=== PATIENT | male | born 1980 | race Caucasian/White ===

== ENCOUNTER 2017-11-21 10:19 | Inpatient (IN) | payer OTHER ==
[~2017-11-21] VITALS: Ht 185.4 cm; Wt 82.0 kg
[2017-11-21] MEDS ORDERED: ONDANSETRON INJ 2 MG/ML 2 ML VIAL IV PRN (16:30)
[2017-11-21 17:13] VITALS: BP 145/88; PULSE 69; TEMP 37; BMI 23.9
[2017-11-21] MEDS ORDERED: PATIENT'S ALLERGY INFO NEEDS ENTERED SCH (17:30)
[2017-11-21] MEDS: PATIENT'S HEIGHT AND/OR WEIGHT NEEDED SCH ×2 (17:30→18:37)
[2017-11-21 17:51] LABS: BASO % 0.6 %; BASO ABS # 0.05 K/uL (0-0.2); EOS % 4.9 %; EOS ABS # 0.41 K/uL (0-0.5); HEMATOCRIT 41.5 % (42-52); HEMOGLOBIN 14.1 g/dL (14.0-18.0); IG# 0.02 K/uL (0.00-0.02); LYMPH % 27.1 %; LYMPH ABS # 2.27 K/uL (1.2-3.4); MEAN CELL VOLUME 92.4 fL (80-100); MEAN CORPUSCULAR HEMOGLOBIN 31.4 pg (25-34); MEAN PLATELET VOLUME 9.6 fL (7.4-10.4); MONO % 12.1 %; MONO ABS # 1.01 K/uL (0.11-0.59); NEUT % 55.1 %; NEUT ABS # 4.62 K/uL (1.4-6.5); PLATELET COUNT 235 K/uL (130-400); RED CELL DISTRIBUTION WIDTH CV 12.6 % (11.5-14.5); RED CELL DISTRIBUTION WIDTH SD 42.4 fL (36.4-46.3); WHITE BLOOD COUNT 8.38 K/uL (4.8-10.8)
--- NOTE | 2017-11-21 18:02 | History and Physical ---
History & Physical Date & Time of Service: Nov 21, 2017 at 17:51 Chief Complaint: Pneumothorax(Left) Primary Care Physician: Connor Estrella PA-C History of Present Illness Source: patient 37 year old male was admitted to [facility] 3 days ago due to left pneumothorax. He notes that 3 days ago he had an "odd" pain-like sensation that radiated from his left shoulder across his left chest wall. He had some associated SOB and noted his symptoms were worse with deep inspiration and cough. He was seen at [facility] where he had a left chest tube placed. He notes it is difficult to ascertain if his presenting symptoms have improved because the chest tube is causing discomfort. Dr. Mathew has subsequently been asked to see him for definitive care. The pt. does note that he had had a left lung collapse 4 times in the past, each time being treated in a conservative manner. He notes he has never had chest surgery for this problem, and in fact has never had a chest tube prior to this admission. At the time of arrival to [facility] the pt. was noted to be in no distress and only complained of pain on left side from chest tube. Past Medical/Surgical History PMHx: 1. Left spontaneous pneumothorax x 4 2. GERD 3. Depression 4. Anxiety 5. Tobacco Use 6. Hx. of ETOH abuse PSHx: 1. Left chest ube placement 2. Tonsillectomy Family History -pt. denies any FH of siblings with pneumothorax -no known FH of cancer Social History Smoking Status: Former Smoker (he has smoked about 1ppd and quit 3 days ago) Smokeless Tobacco Use: No Alcohol Use: former hx. of "heavy ETOH use", but no drinks in 4 years Drug Use: none Marital Status: single Allergies Coded Allergies: Cefaclor (Verified Allergy, Severe, Hives , 11/21/17) Quetiapine (Verified Adverse Reaction, Intermediate, DELIRIUM, 11/21/17) Lethargic Review of Systems Constitutional: No fever, No chills, No weight loss Eyes: No eye pain ENT: No hearing loss Respiratory: + shortness of breath, No cough, No hemoptysis Cardiovascular: + chest pain (chest wall pain ), No palpitations Abdomen: + constipation, No pain, No nausea, No vomiting, No diarrhea Musculoskeletal: No joint pain Genitourinary - Male: No dysuria Neurologic: No weakness Psychiatric: + depression symptoms, + anxiety Endocrine: No fatigue Hematologic / Lymphatic: No clotting problems Integumentary: + problem reported (skin blisters under chest tube dressing ) Allergic / Immunologic: No seasonal allergies Physical Exam General Appearance: WD/WN, no apparent distress Head: normocephalic, atraumatic Eyes: normal inspection, PERRL, EOMI ENT: hearing grossly normal Neck: supple, no adenopathy, no JVD, trachea midline Respiratory/Chest: lungs clear, normal breath sounds, no respiratory distress, no accessory muscle use, + pertinent finding (decreased inspiratory effort due to pain from chest tube ) Cardiovascular: regular rate, rhythm Abdomen/GI: non tender, soft Extremities/Musculoskelatal: no calf tenderness, no pedal edema Neurologic/Psych: can handler II-XII nml as tested, alert, oriented x 3 Skin: + pertinent finding (skin blisters noted under tabe at current chest tube dressing ) no crepitus noted in soft tissue of chest, back, or neck skin blisters noted under tape of current dressing chest tube examined on water seal--no air leak noted Diagnostics Laboratory Results Results Past 24 Hours Test 11/21/17 17:32 Range/Units Diagnostic Radiology CT scan of chest performed at [facility] shortly after arrival (11/21/17): -bilateral apical blebs noted -left chest tube is in place with only small residual let pneumothorax noted Impression Assessment and Plan 37 year old male with recurrent left pneumothorax -will continue chest tube alternating suction and water seal every 4 hours -maintain on supplemental oxygen while in bed -pain control measures: -tylenol, toradol, oxycodone, morphine -encourage coughing, deep breathing, use of IS, and ambulation -due to recurrent nature of problem and noted blebs in lung apices will tentatively plan for left VATS & bleb stapling tomorrow: -the procedure, risks, benefits and alternatives were discussed with the patient and his significant other, along with the expected post-op course/ recovery -will check baseline labs due to planned surgery -NPO after midnight tonight except meds TOBACCO USE -pt. notes he has quit upon recent admission DEPRESSION/ANXIETY -maintain on home dose of Effexor as well as prn Ativan GERD -maintain on ranitidine OTHER -will use SCDs while in bed and ambulation for DVT prevention: -will implement chemical means of DVT prevention post-op but hold for now due to planned surgery -d/c home post-op once chest tube able to be removed Level of Care Med/Surg Resuscitation Status FULL RESUSCITATION VTE Prophylaxis Risk Level: Moderate Given or contraindicated: SCD's
--- NOTE | 2017-11-21 18:02 | DIAGNOSTIC IMAGING REPORT ---
CT SCAN OF THE CHEST WITHOUT IV CONTRAST CLINICAL HISTORY: Pneumothorax. Chest tube placement. COMPARISON STUDY: No priors. TECHNIQUE: CT scan of the thorax was performed from the thoracic inlet to the upper abdomen. Images are reviewed in the axial, sagittal, and coronal planes. IV contrast was not administered for this examination as per the referring clinician. A dose lowering technique was utilized adhering to the principles of ALARA. The examination is degraded by streak artifact from the left arm which could not be elevated above the chest. CT DOSE: 469.70 mGycm FINDINGS: Thyroid: Imaged portions of the thyroid gland are normal in size and attenuation. Thoracic aorta: The thoracic aorta is normal in caliber and demonstrates standard 3-vessel arch anatomy. Heart: The heart is normal in size and without pericardial effusion. Lungs and pleural spaces: A chest tube enters the left pleural space laterally between the fourth and fifth ribs. The tip terminates in the lateral left upper pleural space. There is trace residual pneumothorax identified at the left apex and the anterior left lung base. Trace pleural effusions are identified. There is elevation of the right hemidiaphragm and bibasilar dependent atelectasis. A calcified granuloma is noted at the left lung base. Numerous tiny blebs are present at both apices. There is no right-sided pneumothorax. No airspace consolidation is seen typical for pneumonia. Mediastinum: There is no mediastinal lymphadenopathy. Melanie: Not well assessed without IV contrast. Axillae: There is no axillary lymphadenopathy. Upper abdomen: Partially visualized upper abdominal viscera is within normal limits. Skeletal structures: No lytic or blastic bony lesions are seen. IMPRESSION: 1. A left-sided chest tube has been placed as above. There is trace residual left-sided pneumothorax. 2. There are trace pleural effusions, elevation of the right hemidiaphragm, and bibasilar atelectasis. 3. Numerous tiny blebs are present at the lung apices. 4. There is no airspace consolidation typical for pneumonia. Electronically signed by: Ramu Ford M.D. 11/21/2017 6:01 PM Dictated Date/Time: 11/21/2017 5:55 PM
[2017-11-21 18:05] LABS: PTT PATIENT 28.2 SECONDS (21.0-31.0)
[2017-11-21 18:14] LABS: BLOOD UREA NITROGEN 7 mg/dl (7-18); CARBON DIOXIDE 27 mmol/L (21-32); CREATININE 1.06 mg/dl (0.60-1.40); GLUCOSE 95 mg/dl (70-99); POTASSIUM 3.7 mmol/L (3.5-5.1); SODIUM 138 mmol/L (136-145)
[2017-11-21] MEDS: ACETAMINOPHEN 325 MG TAB PO SCH ×2 (18:30→23:13)
[2017-11-21 18:36] VITALS: Ht 185.4 cm; Wt 82.0 kg
[2017-11-21] MEDS: MoRPHine SULFATE 2 MG/ML CARP IV PRN ×2 (18:49→22:01)
[2017-11-21] MEDS: LORAZEPAM 0.5 MG TAB PO PRN (18:49)
[2017-11-21] MEDS: OXYCODONE HCL IR 5 MG TAB (IMMEDIATE RELEASE) PO PRN (20:07)
[2017-11-21] MEDS: DOCUSATE SODIUM 100 MG CAP PO SCH (21:54)
[2017-11-21] MEDS: RANITIDINE HCL 150 MG TAB PO SCH (21:55)
[2017-11-21 23:05] VITALS: BP 171/98; PULSE 69; TEMP 36.8; O2SAT 95
[2017-11-22] VITALS (11 sets, daily range): BP systolic 109–143; BP diastolic 56–85; PULSE 46–76; TEMP 36.3–36.9; O2SAT 93–97
[2017-11-22] MEDS: MoRPHine SULFATE 2 MG/ML CARP IV PRN ×3 (02:13→06:03)
[2017-11-22] MEDS: ACETAMINOPHEN 325 MG TAB PO SCH ×2 (06:06→09:24)
[2017-11-22] MEDS: KETOROLAC TROMETHAMINE 15 MG/ML VIAL IV PRN (06:27)
--- NOTE | 2017-11-22 07:16 | History & Physical Bridge Note ---
H&P Re-Evaluation Bridge Note: I have examined the patient, reviewed the History & Physical and in the interval since the performance of the History & Physical I have noted the following changes of clinical significance: No changes noted
--- NOTE | 2017-11-22 07:51 | PULMONARY CONSULTATION ---
DATE OF ADMISSION: 11/21/2017 HISTORY OF PRESENT ILLNESS: Mario Choi is a 37-year-old male with a history of cigarette smoking for 20 years and had at least a pack a day, who feels he had a left-sided pneumothorax when he was 19. At that time, he was 160 pounds. He has since filled out and now weighs 180 pounds; however, he noted the onset of left shoulder pain and tightness in his left chest 3 days ago with some shortness of breath. This was pleuritic in nature. He was referred to [facility] from the urgent care and a chest tube was inserted. He has been in considerable amount of pain with this. His past medical history significant for depression, anxiety as well as lumbosacral disc disease and a possible cervical disc disease. I was called by the general surgeon at [facility] and the patient was referred up to our service. He arrived last night and was admitted. Today, his chest tube is in place. He is complaining of considerable amount of pain and is unable to lay in bed. He does not have an air leak. I reviewed a CT scan done last night. He does have a few bullae, small blebs in his left apex. I had a long talk with the patient and his significant other. We are going to proceed with an apical bleb resection later today. I answered all questions. We discussed chest tubes and expected postop management. We will plan to do this procedure with a left thoracoscopy with apical bleb resection later today.
[2017-11-22] MEDS: RANITIDINE HCL 150 MG TAB PO SCH ×2 (09:23→21:26)
[2017-11-22] MEDS: DOCUSATE SODIUM 100 MG CAP PO SCH ×2 (09:23→21:26)
[2017-11-22] MEDS: LORATADINE 10 MG TAB PO SCH (09:23)
[2017-11-22] MEDS: VENLAFAXINE HCL XR 37.5 MG CAPXR PO SCH (09:24)
[2017-11-22] MEDS ORDERED: FENTANYL CITRATE INJ 50 MCG/1 ML 2 ML VIAL ONE (10:30)
[2017-11-22] MEDS ORDERED: MIDAZOLAM HCL 1 MG/ML 2ML VIAL ONE (10:30)
[2017-11-22] MEDS ORDERED: BUPIVACAINE 0.5 % 5 MG/1 ML MPF 30ML VIAL ONE (10:50)
[2017-11-22] MEDS ORDERED: SODIUM CHLORIDE 0.9% PF 50 ML VIAL ONE ×2 (10:50)
[2017-11-22] MEDS ORDERED: BUPIVACAINE LIPOSOME 1/3% 266 MG/20 ML VIAL INFIL ONE (10:50)
[2017-11-22] MEDS ORDERED: CEFAZOLIN SOD 2000MG/15 ML IV PUSH IV ONE (11:05)
[2017-11-22] MEDS ORDERED: FENTANYL CITRATE INJ 50 MCG/1 ML 2 ML VIAL IV PRN (11:15)
[2017-11-22] MEDS ORDERED: HYDROmorphone INJ 0.5 MG/0.5 ML SYR IV PRN (11:15)
[2017-11-22] MEDS ORDERED: PROMETHAZINE HCL INJ 6.25 MG in SODIUM CHLORIDE 0.9% 50ML 50 ML IV PRN (11:15)
[2017-11-22] MEDS ORDERED: ATROPINE SULFATE 0.1 MG/ML 5ML SYR IV PRN (11:15)
[2017-11-22] MEDS ORDERED: EpHEDrine SULFATE INJ 50 MG/ML AMP IV PRN (11:15)
[2017-11-22] MEDS ORDERED: ONDANSETRON INJ 2 MG/ML 2 ML VIAL IV PRN (11:15)
[2017-11-22] MEDS ORDERED: CLINDAMYCIN PHOS 150 MG/ML 2 ML VIAL ONE ×2 (11:39→11:40)
[2017-11-22] MEDS ORDERED: GENTAMICIN SULFATE 40 MG/ML 2 ML VIAL ONE (11:46)
[2017-11-22] MEDS ORDERED: VANCOMYCIN HCL 1000MG/20ML VIAL ONE (11:46)
[2017-11-22] MEDS ORDERED: LIDOCAINE HCL 2% 2 ML VIAL (20MG/ML) ONE (11:51)
[2017-11-22] MEDS ORDERED: DEXAMETHASONE SOD INJ 4 MG/ML VIAL ONE (11:51)
[2017-11-22] MEDS ORDERED: GLYCOPYRROLATE INJ 0.2 MG/ML VIAL ONE (11:51)
[2017-11-22] MEDS ORDERED: NEOSTIGMINE METHYLSULFATE 5 MG/5 ML SYR ONE (11:51)
[2017-11-22] MEDS ORDERED: ROCURONIUM BROMIDE 10 MG/ML 5 ML VIAL IV ONE (11:51)
[2017-11-22] MEDS ORDERED: ONDANSETRON INJ 2 MG/ML 2 ML VIAL ONE (11:51)
[2017-11-22] MEDS ORDERED: PROPOFOL IV EMULSION 10 MG/ML 20 ML VIAL IV ONE (11:51)
--- NOTE | 2017-11-22 12:26 | [facility] Post Operative Brief Note ---
Immediate Operative Summary Operative Date Nov 22, 2017. Pre-Operative Diagnosis Left pneumothorax Post-Operative Diagnosis Same Procedure(s) Performed Video Assisted Thoracoscopy with Bleb Stapling insertion of Stimulan Beads Surgeon Dr Mathew Major Sales Associate Surgeon(s) Kumar Arceo PA-C Estimated Blood Loss 5ml Findings Consistent with Post-Op Diagnosis Specimens Culture #1 left upper lobe for gram stain, aerobic, anaerobic fungal and AFB A. Left parietal pleura B. Left upper lobe apex C. Left pleural implant Drains None (one 20fr chest tube) Anesthesia Type General
--- NOTE | 2017-11-22 13:19 | DIAGNOSTIC IMAGING REPORT ---
CHEST ONE VIEW PORTABLE CLINICAL HISTORY: 37 years-old Male presenting with bleb resection . TECHNIQUE: Portable upright AP view of the chest was obtained. COMPARISON: Chest CT from the previous day. FINDINGS: Cardiomediastinal silhouette normal. Blunting of the right costophrenic angle, possibly small pleural effusion. Bandlike opacities at the lung bases. Postsurgical changes of the left apex with a suture margin noted. A large bore left pleural drain is positioned at the left apex. No pneumothorax. Osseous structures normal. Upper abdomen normal. IMPRESSION: 1. Bibasilar atelectasis and possible small right pleural effusion. No pneumothorax with the large bore left pleural drain in place. Electronically signed by: Frank Camacho M.D. 11/22/2017 1:18 PM Dictated Date/Time: 11/22/2017 1:11 PM
--- NOTE | 2017-11-22 13:35 | Anesthesiology Progress Note ---
Anesthesia Post Op Note Date & Time Nov 22, 2017 at 13:35 Vital Signs Pain Intensity: 2 Vital Signs Past 12 Hours Date Time Temp Pulse Resp B/P (MAP) Pulse Ox O2 Delivery O2 Flow Rate FiO2 11/22/17 13:20 36.2 60 16 134/80 98 Nasal Cannula 2 11/22/17 13:10 61 16 134/76 98 Nasal Cannula 2 11/22/17 12:43 36.2 65 16 129/80 97 Oxymask 10 11/22/17 07:25 Nasal Cannula 2.0 Notes Mental Status: alert / awake / arousable, participated in evaluation Pt Amnestic to Procedure: Yes Nausea / Vomiting: adequately controlled Pain: adequately controlled Airway Patency, RR, SpO2: stable & adequate BP & HR: stable & adequate Hydration State: stable & adequate Anesthetic Complications: no major complications apparent
[2017-11-22] MEDS: METOCLOPRAMIDE HCL INJ 5 MG/ML 2 ML VIAL IV. SCH ×2 (14:16→21:27)
--- NOTE | 2017-11-22 14:21 | OPERATIVE REPORT ---
DATE OF OPERATION: 11/22/2017 PREOPERATIVE DIAGNOSIS: Recurrent left spontaneous pneumothorax. POSTOPERATIVE DIAGNOSIS: Same. PROCEDURES: 1. Left thoracoscopy with apical bleb resection. 2. Limited apical pleurectomy. SURGEON: Nicolas Mathew MD BROOD STATION MANAGER: ROSA Sheth (MrRoss Adis was present for the entire case and was instrumental in holding the camera and closed the skin incisions at the conclusion). ANESTHESIA: General anesthesia endotracheal intubation. INDICATION FOR PROCEDURE AND FINDINGS: This is a 37-year-old male with well over [id number] smoking history, who noted signs and symptoms consistent with a spontaneous left pneumothorax at 19. This has happened at least 3 other times and the latest was a few days ago when he presented with left-sided chest pain which was identical the pain he had in the past. He was found to have a sizable pneumothorax and a chest tube was inserted in the Emergency Room down at [facility]. I was called by the general surgeon and transferred him up last night. Today, we brought him down to the operating room. A CT scan was obtained and really he had very little in the way of blebs, although there were numerous, they were very small. They did not appear to be typical apical blebs we see in young adults. At any rate, I felt that apical bleb resection and limited pleurectomy should be offered. It should also be noted the patient was in a considerable amount of pain with his chest tube. On 11/22/2017, the patient brought to the operating room and underwent an uncomplicated left thoracoscopy with a wedge resection. He did have some small blebs. We did a limited pleurectomy. I performed an Exparel block in the 2nd-11th rib. We also implanted calcium sulfate beads into his chest tube site from his chest tube which had been placed a few days ago in the Emergency Room. Rather than leave it open and loosely pack it, I felt that closing with the calcium sulfate beads would prevent infection and also allow us to close this wound. He tolerated it well and was extubated in the room with negligible blood loss. DESCRIPTION OF PROCEDURE: The patient brought to the operating room and laid in supine position. General anesthesia induced and endotracheal intubation was performed with a single lumen tube. The patient was placed in the right lateral decubitus position. Left chest prepped and draped in usual sterile fashion after chest tube had been removed. We kept his volumes quite low. It was prepped and draped in usual sterile fashion. I went in through his original incision with a 12 mm port and insufflated CO2. With the 5 mm scope, it could be seen that the patient had no adhesions and well-formed lobes with fissures. I closely inspected and did have some small apical blebs. I really did not see any blebs anywhere else. At this point, we mixed 266 mg of Exparel with 150 mL of normal saline, and 30 mL of 0.5% bupivacaine. We then used this with a long needle to block the 2nd-11th rib. I also used it for each of the 3 incisions which had been made. A 5 mm port was placed below the tip of the scapula and another 5 mm port was placed about the eighth interspace a bit more lateral at the costal margin. With these two 5 mm ports and 12 mm port, we were able to grasp the apex and then fired an Endo-SOCRATES stapler and removed a sizable portion of the upper lobe apex. I then closely inspected the superior segment of the lower lobe as well as the intralobar fissures. I really did not see a bleb. We did not see evidence of an air leak. The pleura was scored at about the fifth interspace and bluntly and sharply taken off throughout the entire upper apex. He began minimal blood loss with this. A 20-Turkmen chest tube was placed through the anterior inferior incision and directed towards the apex and held in place with heavy silk suture. The posterior port at the tip of the scapula was closed with 4-0 Monocryl in running subcuticular fashion. The 2.5-3 cm incision in the anterolateral upper chest was then irrigated and the muscle layers were closed with 0 Vicryl in a running continuous fashion. We then mixed 5 mL of purified calcium sulfate with 240 mg of gentamicin and 500 mg of vancomycin. When this had formed a paste, we placed it on a mold. When the beads had set, the mold was bent the beads removed. The beads were then used to pack this wound and a 4-0 Monocryl was used in running suture fashion to close the wound. He tolerated it well. He did have skin lai with blisters and we covered these with antibiotic dressings and paper tape to prevent any further blisters. He did not have an air leak at the conclusion of the case. His chest x-ray showed full expansion of his lung. His pain was much improved. I attest to the content of the Intraoperative Record and any orders documented therein. Any exceptions are noted below. MTDD
[2017-11-22] MEDS: D5W AND 1/2NSS 1,000 ML IV SCH ×2 (16:12→23:47)
[2017-11-22] MEDS: ACETAMINOPHEN IV 1,000 MG in EMPTY BAG 0 ML IV SCH ×2 (16:12→23:47)
[2017-11-22] MEDS: LORAZEPAM 0.5 MG TAB PO PRN (17:50)
[2017-11-23] VITALS (7 sets, daily range): BP systolic 111–132; BP diastolic 62–77; PULSE 40–65; TEMP 36.2–36.8; O2SAT 95–97
[2017-11-23] MEDS: METOCLOPRAMIDE HCL INJ 5 MG/ML 2 ML VIAL IV. SCH (05:44)
[2017-11-23] MEDS: OXYCODONE HCL IR 5 MG TAB (IMMEDIATE RELEASE) PO PRN ×2 (05:44→13:26)
[2017-11-23] MEDS ORDERED: ENOXAPARIN 40 MG/0.4 ML SYR SQ SCH (06:00)
[2017-11-23] MEDS ORDERED: VENL37.593 PO (06:16)
[2017-11-23] MEDS ORDERED: CLR10 PO (06:16)
[2017-11-23] MEDS ORDERED: ZNT150 PO (06:16)
[2017-11-23] MEDS ORDERED: CLC100 PO (06:16)
--- NOTE | 2017-11-23 06:18 | Discharge Instructions ---
Discharge Instructions Date of Service Nov 23, 2017. Admission Reason for Admission: Pneumothorax(Left) Discharge Discharge Diagnosis / Problem: Spontaneous Pneumothorax Discharge Goals Goal(s): Decrease discomfort, Improve function Activity Recommendations Activity Limitations: as noted below Lifting Limitations: none 1. Do not drive until cleared to do so by Dr. Mathew. . Instructions / Follow-Up Instructions / Follow-Up 1. You may remove dressings in 3 days and shower thereafter. No tub baths. 2. Office appointment with Dr. Mathew in 1 week. Office will call you with date and time of appointment. Go to hospital 1 hour before appointment to have a chest x-ray taken. Current Hospital Diet Patient's current hospital diet: Regular Diet Discharge Diet Recommended Diet: Regular Diet Procedures Procedures Performed: Video Assisted Thoracoscopy with Bleb Stapling insertion of Stimulan Beads Pending Studies Studies pending at discharge: no Medical Emergencies . Who to Call and When: Medical Emergencies: If at any time you feel your situation is an emergency, please call 911 immediately. . Non-Emergent Contact Non-Emergency issues call your: Surgeon Call Non-Emergent contact if: you have a fever, your pain is not controlled, wound has increased drainage . "Provider Documentation" section prepared by Mor Arceo. .
[2017-11-23] MEDS: ACETAMINOPHEN 325 MG TAB PO SCH ×2 (06:36→11:24)
--- NOTE | 2017-11-23 07:17 | DIAGNOSTIC IMAGING REPORT ---
SINGLE VIEW CHEST CLINICAL HISTORY: Pneumothorax and chest tube. Bleb resection. FINDINGS: An AP, portable, upright chest radiograph is compared to study dated 11/22/2017 and correlated with chest CT dated 11/21/2017. The cardiomediastinal silhouette is unremarkable. A left sided chest tube is unchanged in position. There is likely a trace residual left apical pneumothorax. There is now a small right apical pneumothorax with approximately 2 cm of pleural separation There is elevation right hemidiaphragm with right basilar atelectasis. No airspace consolidation or large pleural effusion is identified. The bony thorax is grossly intact. IMPRESSION: 1. A left-sided chest tube is unchanged in position. A trace left apical pneumothorax likely persists. 2. There is now a small right apical pneumothorax. 3. No airspace consolidation or large pleural effusion is identified. Electronically signed by: Ramu Ford M.D. 11/23/2017 7:16 AM Dictated Date/Time: 11/23/2017 7:14 AM
[2017-11-23] MEDS: DOCUSATE SODIUM 100 MG CAP PO SCH (08:24)
[2017-11-23] MEDS: LORAZEPAM 0.5 MG TAB PO PRN (08:24)
[2017-11-23] MEDS: LORATADINE 10 MG TAB PO SCH (08:24)
[2017-11-23] MEDS: RANITIDINE HCL 150 MG TAB PO SCH (08:24)
[2017-11-23] MEDS: VENLAFAXINE HCL XR 37.5 MG CAPXR PO SCH (08:24)
--- NOTE | 2017-11-23 09:55 | SURGERY PROGRESS NOTE ---
DATE: 11/23/2017 Mr. Choi was seen today 11/23/2017, one day after he had a left thoracoscopy with an apical bleb resection and limited pleurectomy. He did very well with this. His pain is better even though he is complaining of pain. He had an intense pain upon his presentation. There is no air leak and no pneumothorax on the left. I removed his tube today. His incisions are clean. I was surprised to see the patient had a pneumothorax on the RIGHT. It is a small pneumothorax; however, we did not do anything on the right and I am a bit puzzled as to why he has one now. At any rate, it is small and limited to the very apex. I am going to check a chest x-ray in a few hours and if it is stable I am going to let him go home. Should it enlarge, we will consider placing a tube or perhaps consider surgery, although I would not enthusiastic about doing this such a short time after his surgery on the left. In addition, I had a long talk with the patient and his significant other at the bedside. Quite frankly, the bullae were not very well seen. We did remove the apex and do a pleurectomy and I think this should help him as we saw no air leak at the time of surgery. Having said that, he had small bulla noted with multiple small bullae in the apex. He has also had intraparenchymal air spaces. I am going to discuss this with pathology and I am curious to see what they find on histologic evaluation.
[2017-11-23] MEDS: KETOROLAC TROMETHAMINE 15 MG/ML VIAL IV PRN (11:23)
[2017-11-23] MEDS ORDERED: ACET-1047 PO (12:06)
--- NOTE | 2017-11-23 12:07 | DIAGNOSTIC IMAGING REPORT ---
SINGLE VIEW CHEST CLINICAL HISTORY: Pneumothorax. FINDINGS: An AP, portable, upright chest radiograph is compared to study performed earlier the same day for [address] dated 11/21/2017. The cardiomediastinal silhouette is unremarkable. The left-sided chest tube has been removed. Seizure material is noted the left apex. There is a small left apical pneumothorax. A small right apical pneumothorax persists. There is elevation right hemidiaphragm with right basilar atelectasis. No airspace consolidation or large pleural effusion is identified. The bony thorax is grossly intact. IMPRESSION: 1. The left-sided chest tube has been removed. There is a small left apical pneumothorax. 2. A right apical pneumothorax is unchanged. 3. No airspace consolidation or large pleural effusion is identified. Electronically signed by: Ramu Ford M.D. 11/23/2017 12:06 PM Dictated Date/Time: 11/23/2017 12:04 PM
--- NOTE | 2017-11-23 12:35 | DISCHARGE SUMMARY ---
DISCHARGE DIAGNOSES: 1. Bilateral pulmonary pneumothoraces. 2. History of active cigarette smoking. 3. History of recurrent left spontaneous pneumothoraces. HOSPITAL COURSE: Mr. Choi is a 37-year-old who has been smoking at least a pack a day for 20 years, who has noted signs and symptoms consistent with a left pneumothorax at least 3 times in the past. Presented with a 3-day history of increasing pain in his left chest, shortness of breath, and was found to have a significant left pneumothorax. Chest tube was placed in the Emergency Room at [facility] and he was admitted. He had a persistent air leak. I was called and transferred him up to my service in the evening of 11/21/2017. On 11/22/2017, I treated the patient in the operating room and did an uncomplicated thoracoscopy with a partial pleurectomy apically and wedged out the apical segment where there were multiple tiny bullae. He did well with this with no air leak and the following morning he had very little drainage and I removed his chest tube. I was surprised to see he had a right-sided pneumothorax this morning which was not present last night after surgery. It was small and I watched him for several hours on room air. He was ambulating in the hallway and tolerating a regular diet. His pain was much better after the tube had been pulled. Chest x-ray showed a very small right apical pneumothorax. In fact, I thought it was a bit smaller this morning. I felt comfortable sending him home. I, however, instructed him to call me should he run into any problems. He looked quite good and was quite pleased upon his discharge. I have explained to him that he has small bulla on the right too; however, I did not want to put a tube in for this very small apical pneumothorax or offer him an operation at this point. I will see him back next week. He is to call me if there are any issues.
--- NOTE | 2017-11-23 14:28 | Anesthesiology Progress Note ---
Anesthesia Post Op Note Date & Time Nov 23, 2017 at 13:55 Vital Signs Vital Signs Past 12 Hours Date Time Temp Pulse Resp B/P (MAP) Pulse Ox O2 Delivery O2 Flow Rate FiO2 11/23/17 12:34 36.2 65 16 95 Nasal Cannula 11/23/17 11:12 36.2 65 16 130/69 (89) 95 Room Air 11/23/17 08:30 36.6 53 16 121/72 (88) 95 Room Air 11/23/17 07:15 Room Air 11/23/17 05:45 36.8 54 16 132/77 (95) 95 Room Air Notes Mental Status: alert / awake / arousable, participated in evaluation Pt Amnestic to Procedure: Yes Nausea / Vomiting: adequately controlled Pain: adequately controlled Airway Patency, RR, SpO2: stable & adequate BP & HR: stable & adequate Hydration State: stable & adequate Anesthetic Complications: no major complications apparent
== END 2017-11-23 13:43 | disposition home or self-care (01) | DRG 165 ==
LOC: C.MSW 16:29 → UNDOADMIN 17:13
PROVIDERS: ADMIT Surgery; ATTEND Surgery
PROC: 0BBP4ZZ Excision of Left Pleura, Percutaneous Endoscopic Approach (ICD-10-PCS; principal; 2017-11-22 13:00)
PROC: 0BBL4ZZ Excision of Left Lung, Percutaneous Endoscopic Approach (ICD-10-PCS; principal; 2017-11-22 13:00)
DX: J93.83 Other pneumothorax (principal); K21.9 Gastro-esophageal reflux disease without esophagitis; F41.9 Anxiety disorder, unspecified; Z87.891 Personal history of nicotine dependence

== ENCOUNTER → 2017-11-27 | Outpatient (CLI) | payer OTHER ==
[~2017-11-27] MED LIST: ACET-1047 PO; CLC100 PO; CLR10 PO; VENL37.593 PO; ZNT150 PO
--- NOTE | 2017-11-27 09:07 | DIAGNOSTIC IMAGING REPORT ---
CHEST 2 VIEWS ROUTINE CLINICAL HISTORY: J93.9 pneumothorax COMPARISON STUDY: 11/23/2017 FINDINGS: The right lung is currently clear. No evidence for right-sided pneumothorax. Persistent very small left apical pneumothorax with a maximum pleural separation of 6 mm. This is slightly improved the prior exam. Unchanging calcified granuloma left midlung. Lung bases are clear. IMPRESSION: Improved exam. No significant right-sided pneumothorax. Minimal residual left apical pneumothorax. The above report was generated using voice recognition software. It may contain grammatical, syntax or spelling errors. Electronically signed by: Alin Linares M.D. 11/27/2017 9:05 AM Dictated Date/Time: 11/27/2017 9:04 AM
== END | disposition home or self-care (01) ==
LOC: C.RAD1850 08:52
PROVIDERS: ATTEND Surgery
DX: J93.9 Pneumothorax, unspecified (principal)